=== PATIENT | male | born 1950 | race Caucasian/White ===

== ENCOUNTER 2021-12-20 10:11 | Emergency (ER) | payer MEDICARE, OTHER, SELFPAY ==
[2021-12-20 10:20] VITALS: BP 152/84; PULSE 53; RESP 20; TEMP 35.9; O2SAT 98
--- NOTE | 2021-12-20 10:28 | ED.ABDPAIN ---
HPI - Abdominal Pain General Chief Complaint: Nausea/Vomiting/Diarrhea Stated Complaint: Chills,Vomiting Time Seen by Provider: 12/20/21 10:35 Source: patient and RN notes reviewed Mode of arrival: ambulatory Limitations: no limitations History of Present Illness HPI narrative: 71 y/o male with hx DM and HTN, presented for c/o decreased appetite starting yesterday, and today with nausea, diarrhea, and feeling clammy/chills. Denies vomiting, hematochezia, melena, cough, sob, wheezing or sinus congestion. Denies sick contacts. Related Data Home Medications Medication Instructions Recorded Confirmed gabapentin 300 mg capsule mg 12/20/21 glipizide 10 mg tablet mg 12/20/21 hydrocodone 10 mg-acetaminophen tablet 12/20/21 325 mg tablet metoprolol tartrate 100 mg tablet mg 12/20/21 olmesartan 40 mg tablet mg 12/20/21 tamsulosin 0.4 mg capsule mg PO 12/20/21 trazodone 50 mg tablet mg 12/20/21 verapamil 180 mg tablet,extended mg PO 12/20/21 release Allergies Allergy/AdvReac Type Severity Reaction Status Date / Time No Known Allergies Allergy Verified 12/20/21 10:46 Review of Systems Review of Systems: ROS negative except as in HPI All systems reviewed & are unremarkable except as noted in HPI and below PMFSH Comments At time of signature, I have reviewed and agree with nursing past medical, surgical, social and family history unless otherwise noted. Please see nursing chart for further information. There is no relevant family history pertinent to the presenting complaint Exam Narrative: GENERAL: ill-appearing, in no acute distress. EYES: EOMI. Conjunctivae normal. ENT: Mucous membranes pink and moist. CHEST: No respiratory distress. Clear to auscultation. HEART: Regular rate and rhythm. No murmur appreciated. Normal peripheral pulses. ABDOMEN: abd soft, round, normal active bowel sounds. Nontender abdomen, No guarding EXTREMITIES: Normal range of motion. No edema. SKIN: Warm, dry, no rash. Capillary refill normal. Normal skin turgor. NEURO: No focal deficits. Alert and oriented x3. PSYCH: Normal affect. Course Course Emergency Course: Patient is aware of diagnosis, understands and agrees to treatment plan. Anticipatory guidance given. Patient agrees to follow-up as directed and is aware of reasons to seek care at the emergency department. Portions of this record may have been created with voice recognition software Level of Care: [facility] Visit Vital Signs Vital signs: Vital Signs Temperature 96.7 F L 12/20/21 10:20 Pulse Rate 53 L 12/20/21 10:20 Respiratory Rate 20 12/20/21 10:20 Blood Pressure 152/84 H 12/20/21 10:20 Pulse Oximetry 98 12/20/21 10:20 Oxygen Delivery Room Air 12/20/21 10:20 Temperature 96.7 F L 12/20/21 10:20 Pulse Rate 53 L 12/20/21 10:20 Respiratory Rate 20 12/20/21 10:20 Blood Pressure 152/84 H 12/20/21 10:20 Pulse Oximetry 98 12/20/21 10:20 Oxygen Delivery Room Air 12/20/21 10:20 Transfer Transfered to: [facility] Transportation: Other (private vehicle) Transfer rationale: Pt is agreeable to transfer. Requests transfer to [facility] via private vehicle. Risks of transportation reviewed with pt including injury, worsening of condition and . v/u. Caregiverwill be driving pt; Report called to [place] [facility], spoke with Dr Sydney Clay accepting physician. Pt is in stable condition at time of transfer. Advised to remain NPO and go directly to the hospital. MDM - Abdominal Pain MDM Narrative Medical decision making narrative: Endorses black liquid stool while in [facility]. Pt states he does not have any money and would like to go to the [place] for further evaluation and treatment. Differential Diagnosis Differential diagnosis: Likely abdominal pain, constipation, diverticulitis, gastroenteritis and small bowel obstruction Discharge Plan Discharge Clinical Impression: Diarrhea Patient Disposi
[2021-12-20] MEDS: ONDANSETRON HCL ODT 4 MG TABLET SUBLINGUAL (10:47)
== END 2021-12-20 10:56 | disposition short-term general hospital (02) ==
PROVIDERS: Emergency Provider Nurse Practitioner Family; PCP Internal Medicine
DX: R19.7 Diarrhea, unspecified (principal); I10 Essential (primary) hypertension; E11.9 Type 2 diabetes mellitus without complications
CPT/HCPCS: 99213; A9270; G0463